=== PATIENT | male | born 1985 | race Caucasian/White ===

== ENCOUNTER 2018-03-21 20:08 | Emergency (ER) | payer BC, OTHER ==
[~2018-03-21] VITALS: Ht 195.6 cm; Wt 120.0 kg
[~2018-03-21 20:08] MED LIST: ACET-812 PO; AZEL23SP BOTHNARES; IBUP-1986 PO; MOME17SP BOTHNARES; MONT10TA21 PO
[2018-03-21 20:09] VITALS: BP 120/87
[2018-03-21] MEDS ORDERED: triamcinolone acetonide 40mg/ml inj IM ONE (20:55)
== END 2018-03-21 21:55 | disposition home or self-care (01) ==
LOC: ER 20:09
DX: M79.674 Pain in right toe(s) (principal); Z79.899 Other long term (current) drug therapy; Z88.8 Allergy status to other drugs, medicaments and biological substances; Z90.89 Acquired absence of other organs
CPT/HCPCS: 36415; 73630; 84550; 96372; 99285; J3301

== ENCOUNTER 2018-12-30 09:06 | Emergency (ER) | payer MEDICARE ==
[~2018-12-30] VITALS: Ht 195.6 cm; Wt 129.0 kg
[2018-12-30] MEDS ORDERED: normal saline 1000ml 1,000 ML IV ONE (09:15)
[2018-12-30] MEDS ORDERED: methylPREDNISolone sod succ 125mg/2ml vial IV ONE (09:15)
--- NOTE | 2018-12-30 09:29 | NUR ---
Pt is alert and oriented and talking. Pt has a frequent cough and states his throat feels itchy and irritated.
[2018-12-30] MEDS ORDERED: LIDOcaine Viscous 15ml cup PO ONE (09:40)
[2018-12-30] MEDS ORDERED: ipratropium/albuterol 3ml nebule NEB ONE (09:50)
--- NOTE | 2018-12-30 09:52 | NUR ---
Pt sp02 94% on RA. placing order for breathing treatment. 2 L NC placed on patient, sp02 98% afer initiation of oxygen.
--- NOTE | 2018-12-30 10:07 | NUR ---
respiratory at bedside giving breathing treatment per orders. Family at bedside.
--- NOTE | 2018-12-30 10:15 | NUR ---
Pt VSS, alert and oriented. Pt cough is less frequent. Pt px reported that right side of throat felt it had a lump in it and was scratchy. After receiving breathing treatment pt states it has resolved. Sp02 96% on 2L.
--- NOTE | 2018-12-30 10:20 | NUR ---
Ilya at bedside, states he will watch patient's sp02 for the next couple of hours.
--- NOTE | 2018-12-30 11:03 | NUR ---
DR ETIENNE REMOVED OXYGEN FROM PT AND ASKED RN FOR GAIT TEST WITH SPO2 MONITORING
[2018-12-30 11:10] VITALS: BP 142/79
--- NOTE | 2018-12-30 11:27 | NUR ---
PT AMBULATED APPROX 200 FT WITH NO SOB OR DIFFICULTY BREATHING, PT SPO2 98% PT HEART RATE 115 BUT CAME BACK DOWN TO HEART RATE 85 UPON RETURN TO SITTING IN ROOM AND SPO2% IN ROOM SITTING 97%
[2018-12-30] MEDS ORDERED: ALBU8.5H8 INH (11:34)
[2018-12-30] MEDS ORDERED: PRED20TA PO (11:34)
== END 2018-12-30 12:00 | disposition home or self-care (01) ==
LOC: ER 09:07
DX: J70.5 Respiratory conditions due to smoke inhalation (principal); Z90.49 Acquired absence of other specified parts of digestive tract; Z88.6 Allergy status to analgesic agent; Z88.8 Allergy status to other drugs, medicaments and biological substances; Z79.899 Other long term (current) drug therapy
CPT/HCPCS: 71045; 94640; 94760; 96374; 99283; J2930; J7030

== ENCOUNTER 2021-07-22 09:42 | Emergency (ER) | payer MEDICARE ==
[~2021-07-22] VITALS: Ht 195.6 cm; Wt 120.5 kg
[~2021-07-22 09:42] MED LIST changes: +ALBU8.5H17 INH
[2021-07-22 09:55] VITALS: BP 149/101
[2021-07-22] MEDS ORDERED: Ivermectin 3mg tablet PO STA (11:10)
== END 2021-07-22 11:52 | disposition home or self-care (01) ==
LOC: ER 09:43
DX: B86 Scabies (principal); Z90.89 Acquired absence of other organs; Z88.8 Allergy status to other drugs, medicaments and biological substances; Z79.899 Other long term (current) drug therapy
CPT/HCPCS: 99283

== ENCOUNTER 2021-07-28 08:37 | Emergency (ER) | payer MEDICARE ==
[~2021-07-28] VITALS: Ht 190.5 cm; Wt 120.0 kg
[~2021-07-28 08:37] MED LIST changes: -MOME17SP BOTHNARES; +MOME17SP5 BOTHNARES
[2021-07-28 08:44] VITALS: BP 144/81
[2021-07-28] MEDS ORDERED: IVER3TAB2 PO (08:50)
[2021-07-28] MEDS ORDERED: Ivermectin 3mg tablet PO STA (09:07)
== END 2021-07-28 09:20 | disposition home or self-care (01) ==
LOC: ER 08:37
DX: B86 Scabies (principal); Z90.89 Acquired absence of other organs; Z88.8 Allergy status to other drugs, medicaments and biological substances; Z79.899 Other long term (current) drug therapy
CPT/HCPCS: 99283